=== PATIENT | male | born 1960 | race Caucasian/White ===

== ENCOUNTER 2016-04-30 23:55 | Emergency (ER) | payer OTHER ==
--- NOTE | ~2016-04-30 | CR181 ---
[facility] A Service of [facility] RADIOLOGY TEXT RESULTS PATIENT: RANDOLPH REICH LOCATION: SED : 62 UNIT #: [id number] AGE: [address]: JOE BILLS SEX: M ORDER DR: [id number] [place] [id number] MR#: [id number] #: [id number] NAME: RANDOLPH REICH : 1960 SEX: M STUDY DATE/TIME: 05/01/2016 0:53 UNIT: SED ROOM: STUDY DESCRIPTION: CR Lumbar Spine 2 or 3 Views Attending Physician: Joe Bills Ordering Physician: Jaleel Noe M.D. Primary Care Physician: Rona Jackson A.P.R.N. MEDICAL IMAGING REPORT This report is preliminary unless electronic signature is present. EXAM Lumbar spine, 3 views. COMPARISON April 12, 2016. INDICATION 56-year-old male with low back pain since slipping and falling yesterday. FINDINGS Changes of the posterior spinal fusion at L5-S1 bilaterally are again noted. There is no evidence of surgical hardware complication. There is disc spacer material at L5-S1. Surgical clips are seen anterior to the L4-L5 disc space and L5 vertebral body. There is calcification of the abdominal aorta and iliac arteries. Lumbar spine is anatomically aligned. No evidence of acute fracture. There are bilateral pelvic phleboliths which are grossly stable from comparison. IMPRESSION 1. No acute fracture or dislocation of lumbar spine. 2. There is posterior surgical fusion of L5-S1 bilaterally. No evidence of hardware complication. 1. Dictated by... Cristhian Le M.D. THIS IS AN ELECTRONICALLY VERIFIED REPORT Cristhian Le M.D. at 05/04/2016 9:28 PM BLM/gz TD: 05/01/2016 09:34 JOB #: [id number] [facility] A Service of [facility] RADIOLOGY TEXT RESULTS PATIENT: RANDOLPH REICH LOCATION: [facility] #: [id number] : 62 UNIT #: [id number] AGE: [address]: JOE BILLS SEX: M ORDER DR: MEDICAL IMAGING REPORT
[~2016-04-30 23:55] MED LIST: ALBUTEROL17 GM; ALBUTEROL17 GM INH; ALBUTEROL17 GM NEB; ALLERGY RELIEF10 M2 PO; ALPRAZOLAM PO; AMBIEN PO; ASPIRINEC; ASPIRINEC PO; ATENOLOL PO; BAYER CHEWABLE81 MG; BP MEDS; BRILINTA90 MG; CHANTIX PO; CRESTOR; DIAZEPAM; ECOTRIN325 MG PO; FLEXERIL PO; IBUPROFEN400 MG PO; IMDUR-ER60 M2; KADIAN PO; LIPITOR; LISINOPRIL; LISINOPRIL PO; LISINOPRIL-HCTZ1 T21; LISINOPRIL20 MG PO; LORCET 10/650 T1 TAB; LYRICA PO; MS CONTIN PO; MS CONTIN60 MG PO; MUCINEX DM1 TAB.SR . PO; NEURONTIN PO; NEURONTIN800 MG PO; NITROGLYGERIN0.4 MG SL; NORVASC PO; NORVASC10 MG; OXYCONTIN80 MG PO; PERCOCET 10/31 UDTA1 PO; PERCOCET PO; PERCOCET10 PO; PLAVIX PO; PREDNISONE50 MG; PRINIVIL20 M1; RELAFEN PO; TENORMIN25 MG PO; TENORMIN50 MG PO; TOPROL XL; ULTRAM PO; XANAX1 MG PO; ZANAFLEX PO; ZANAFLEX4 M1 PO; ZITHROMAX PO; ZOCOR PO
[2016-05-26] MEDS ORDERED: NEURONTIN (12:00)
[2016-05-26] MEDS ORDERED: PERCOCET (12:00)
== END 2016-05-01 02:30 | disposition home or self-care (01) ==
LOC: SED 23:55
DX: S39.012A Strain of muscle, fascia and tendon of lower back, initial encounter (principal); R03.0 Elevated blood-pressure reading, without diagnosis of hypertension; Z88.5 Allergy status to narcotic agent; Z98.890 Other specified postprocedural states; W01.0XXA Fall on same level from slipping, tripping and stumbling without subsequent striking against object, initial encounter; Y92.039 Unspecified place in apartment as the place of occurrence of the external cause
CPT/HCPCS: 72100; 96372; 99283; J2360

== ENCOUNTER 2016-05-26 12:32 | Emergency (ER) | payer OTHER ==
[~2016-05-26 12:32] MED LIST changes: +NEURONTIN; +PERCOCET
== END 2016-05-26 12:57 | disposition home or self-care (01) ==
LOC: SED 12:32
DX: G89.29 Other chronic pain (principal); M54.5 Low back pain; I10 Essential (primary) hypertension; Z88.5 Allergy status to narcotic agent
CPT/HCPCS: 99282